=== PATIENT | male | born 1955 | race Caucasian/White ===

== ENCOUNTER 2018-08-04 18:32 | Emergency (ER) | payer BC, SELFPAY ==
[2018-08-04] VITALS (7 sets, daily range): BP systolic 130–188; BP diastolic 57–79; PULSE 67–84; RESP 14–24; TEMP 36.6–36.8; O2SAT 92–98
--- NOTE | 2018-08-04 19:05 | W.ED.GENAD ---
Medical Decision Making <Chito Cooper DO - Last Filed: 08/05/18 08:37> This is a pleasant 63-year-old male who presents with left scrotal pain for the last few days, as well as dysuria and left flank pain. Exam demonstrates a notably enlarged left testicle, exquisitely tender on exam. Mild erythema and edema of the scrotum. No subcutaneous crepitus. No evidence of significant hernia that I can appreciate. I am unable to visualize the penis secondary to the generalized swelling in the area. I cannot appreciate any balanitis or severe phimosis or paraphimosis on exam clinically. I am notably concerned for the patient's left testicle, differential includes abscess versus infected hydrocele versus mass. We will get a CT scan for further evaluation. Will perform laboratory work-up to evaluate for infectious etiology. Dr. Tejeda is currently unavailable for the next 48 hours, we will contact [facility] for further urologic management. The case will be signed out to my colleague Dr. Kaur for CT results, final disposition management. The patient will be started on Zosyn and Flagyl for suspected infection. <Jeromy Kaur MD - Last Filed: 08/04/18 22:31> Patient signed out to me pending laboratory results and CT scan. Clinically he is reported to have evidence of genital cellulitis with large, firm, tender left hemiscrotum. He is hemodynamically stable. He has Zosyn and Flagyl running. Laboratory studies of significance is a white count of 13.6, sed rate of 99, C-reactive protein of 16.5. BUN and a creatinine a little elevated at 25 and 1.44 respectively. No baseline in our system. Glucose high at 290. Urine positive for blood and nitrites. Micro positive for white cells, red cells, bacteria. CT scan per radiology show evidence of scrotal and penile cellulitis with evidence of left sided epididymitis and epididymal abscess. Also of note are 2 large sclerotic lesions one involving the left femoral neck and one involving the left hemipelvis which should be worked up in the future to rule out malignancy. Case discussed with [facility] urology. Unfortunately there are no beds for them to accept patients to. She did recommend transfer to tertiary care center where there is urology available to evaluate. Agreed with antibiotic choice of Zosyn and Flagyl. Case discussed with [facility] urology, Dr. Newton. He agrees with patient being transferred to the ED at [facility] for evaluation there regarding hospitalist admission versus urology admission. He also agreed with Zosyn and Flagyl as antibiotic choice. Patient remains hemodynamically stable. Patient discussed with ED physician, Dr. Meraz. Patient to be transferred by ambulance to [facility] emergency department for further evaluation of scrotal cellulitis and possible epididymal abscess. Patient and aware of need for transfer and are agreeable with transfer to [facility]. Lab Data Lab results reviewed: Yes I reviewed the patient's lab results. HPI <Chito Cooper DO - Last Filed: 08/05/18 08:37> General Date/Time Provider Initiated Documentation: 08/04/18 18:37. HPI Narrative: This is a 63-year-old male with a past medical history of diabetes hypertension high cholesterol on Plavix for cardiac stents, who presents today for evaluation of left scrotal pain and swelling in addition to some mild flank pain generalized abdominal uneasiness. He did have some diarrhea and vomiting 3 to 4 days ago, this is resolved, however pain in his left lower scrotum, and swelling in his scrotum around the left testicle has notably increased. Also of note roughly 2 to 3 weeks ago the patient states that he had swelling of his foreskin, he was given a steroid pill and cream and this improved those symptoms. In addition to the symptoms the patient also complains of dysuria for the last few days, and left-sided flank and abdominal pain. He denies any history of other scrotal issues. He has no other complaints at this time. Related Data Home Medications Medication Instructions Recorded Confirmed allopurinol 200 mg PO DAILY 08/04/18 08/04/18 amlodipine 10 mg PO DAILY 08/04/18 08/04/18 aspirin 325 mg PO DAILY 08/04/18 08/04/18 clopidogrel 75 mg PO DAILY 08/04/18 08/04/18 coenzyme Q10 [CoQ-10] 100 mg PO DAILY 08/04/18 08/04/18 cyanocobalamin (vitamin B-12) 1,000 mcg PO DAILY 08/04/18 08/04/18 [Vitamin B-12] finasteride 5 mg PO DAILY 08/04/18 08/04/18 folic acid 1 mg PO DAILY 08/04/18 08/04/18 glipizide 2.5 mg PO BID 08/04/18 08/04/18 glucosamine sulfate 2KCl 2 mg PO DAILY 08/04/18 08/04/18 [Glucosamine Relief] insulin aspart U-100 [Novolog 15 unit SUBCUT DAILY 08/04/18 08/04/18 U-100 Insulin aspart] insulin glargine [Lantus Solostar 60 unit SUBCUT DAILY 08/04/18 08/04/18 U-100 Insulin] losartan-hydrochlorothiazide 1 tab PO DAILY 08/04/18 08/04/18 metformin 1,000 mg PO BID 08/04/18 08/04/18 metoprolol succinate 100 mg PO BID 08/04/18 08/04/18 omega-3 fatty acids [Fish Oil 1,000 mg PO DAILY 08/04/18 08/04/18 Concentrate] rosuvastatin [Crestor] 40 mg PO DAILY 08/04/18 08/04/18 sertraline 100 mg PO DAILY 08/04/18 08/04/18 tamsulosin 0.4 mg PO DAILY 08/04/18 08/04/18 trazodone 50 mg PO QHS PRN 08/04/18 08/04/18 Allergies Allergy/AdvReac Type Severity Reaction Status Date / Time No Known Allergies Allergy Unverified 08/04/18 18:55 General Stated Complaint: FlankPain AGUSTIN: 3 Review of Systems <Chito Cooper DO - Last Filed: 08/05/18 08:37> Review of Systems All systems reviewed & are unremarkable except as noted in HPI and below PFSH <Chito Cooper DO - Last Filed: 08/05/18 08:37> Social History Smoking/Tobacco Use Status: Never Alcohol Intake: current Alcohol Intake frequency: a few times a month Alcohol type: beer Drug use: Never Substance use type: does not use Do you feel safe at home: Yes Do you feel safe in your relationship?: Yes Exam <Chito Cooper DO - Last Filed: 08/05/18 08:37> Narrative Exam Narrative: 1.Const: Well-nourished, Well-developed, appearing stated age 2.Eyes: PERRL, no conjunctival injection, and symmetrical lids. 3.ENT: Atraumatic external nose and ears. Moist MM. Neck: Symmetric, trachea midline, No thyromegaly. 4.CVS: +S1/S2, No murmurs or gallops. Peripheral pulses 2+ and equal in all extremities. Brisk capillary refill in all extremities. 5.RESP: Unlabored respiratory effort. Clear to auscultation bilaterally. No wheezes rales or rhonchi 6.GI: Soft, Nondistended, No hepatosplenomegaly. No guarding or rebound. Mild left CVA tenderness. Genital exam demonstrates notably enlarged firm left testicle, appears to be greater than 5 or 6 cm. Exquisitely tender. Mild erythema. Right testicle is normal in palpation in appearance. No significant tenderness. Unable to evaluate penis secondary to swelling edema and retraction of the penis behind the scrotal and regular penile tissue. However the pathway for penis extraction shows no evidence of significant firm erythematous or edematous tissue. No pain or tenderness on actual palpation of the penis itself. 7.MSK: Normocephalic/Atraumatic, Extremities w/o deformity or ttp No cyanosis or clubbing, Normal movement of all extremities 8.Skin: Warm, Dry. No rashes or lesions. 9.Neuro: lube attendant II-XII grossly intact. Sensation grossly intact, no focal neurologic deficits. 10.Psych: (AAO) x3. Appropriate mood and affect Course <Chito Cooper, - Last Filed: 08/05/18 08:37> Vital Signs Temperature 36.8 C 08/04/18 18:40 Pulse 76 08/04/18 18:40 Respiratory Rate 14 08/04/18 18:40 Blood Pressure 188/75 H 08/04/18 18:40 Pulse Oximetry 95 08/04/18 18:40 Temperature 36.8 C 08/04/18 18:40 Temperature Source Temporal Artery Scan 08/04/18 18:40 Pulse 76 08/04/18 18:40 Respiratory Rate 14 08/04/18 18:40 Respiratory Effort 08/04/18 18:56 Blood Pressure 188/75 H 08/04/18 18:40 Blood Pressure Position Sitting 08/04/18 18:40 Pulse Oximetry 95 08/04/18 18:40 Oxygen Delivery Method Room Air 08/04/18 18:40 Oxygen Flow Rate 0 08/04/18 18:40 Pain Level 3 08/04/18 18:40 Lab/Test Results Lab/Test Results: 08/04/18 18:52 Blood Blood Culture - Pending 08/04/18 18:52 Blood Blood Culture - Pending Sign Out <Chito Cooper DO - Last Filed: 08/05/18 08:37> Sign Out Data: Sign Out Comment: Pending CT results, labs and disposition Last updated by Chito Cooper DO at 08/04/18 20:21
[2018-08-04 19:12] LABS: Abs Immature Grans 0.11 k/cumm (0.0-0.09); Absolute Basophil Count 0.04 k/cumm (0.0-0.2); Absolute Eosinophil Count 0.16 k/cumm (0.0-0.7); Absolute Monocyte Count 0.97 k/cumm (0.11-0.7); Absolute Neutrophil Count 10.94 k/cumm (1.2-6.7); Basophils % 0.3; Eosinophils % 1.2; HCT 42.3 % (40.0-50.0); HGB 14.3 g/dL (13.5-17.5); Immature Grans % 0.8; Lactate-non-spesis 1.1 mmol/l (0.6-1.4); Lymphocytes % 10.3; Mean Corp. HGB Concentration 33.8 g/dL (32.0-36.0); Mean Corpuscular Hemoglobin 28.2 pg (27.0-33.0); Mean Corpuscular Volume 83.4 fL (80-95); Mean Platelet Volume 9.9 fL (8.0-11.0); Monocytes % 7.1; Neutrophils % 80.3; Platelet Count 208 x1000/uL (130-400); RBC 5.07 m/cumm (4.50-6.00); RBC Distribution Width 13.7 % (11.8-14.1); White Blood Cell Count 13.62 k/cumm (4.4-10.8)
[2018-08-04 19:29] LABS: Prothrombin Time 9.9 sec (9.3-11.0)
[2018-08-04 19:47] LABS: ALT 37 U/L (12-78); AST 20 U/L (15-37); Albumin 3.2 g/dL (3.4-5.0); Alkaline Phosphatase 147 U/L (46-116); Anion Gap 8.6 mmol/L (3-11); BUN 25 mg/dL (7-18); Bilirubin, Total 0.3 mg/dL (0.2-1.0); C-Reactive Protein 16.51 mg/dL (0.0-0.3); CO2 28.4 mmol/L (21.0-32.0); CREATININE 1.44 mg/dL (0.70-1.30); Calcium 9.7 mg/dL (8.5-10.1); Chloride 95 mmol/L (98-107); Estimated GFR 49.39 (mL/min/1.73m2); Glucose 290 mg/dL (70-100); Potassium 3.7 mmol/L (3.5-5.1); Sodium 132 mmol/L (136-145); Total Protein 8.3 g/dL (6.4-8.2)
[2018-08-04 19:57] LABS: ESR 99 MM/HR (1-20)
[2018-08-04] MEDS: Omnipaque 350 MG/ML 100 ML BTL IV (20:02)
--- NOTE | 2018-08-04 20:25 | DI.CT_ITS ---
SYMPTOM/DIAGNOSIS: SCROTAL MASS, ERYTHEMA, ? ABSCESS ABDOMEN AND PELVIC CT: CT scan of the abdomen and pelvis was performed following the uneventful administration of intravenous contrast material. There are no priors for comparison. No acute findings are seen in the lung bases. There is diffuse decreased attenuation of the liver suggesting fatty infiltration. No discrete hepatic mass is seen. The portal, superior mesenteric and splenic veins are patent. The gallbladder is negative. There is no biliary ductal dilatation. The pancreas, spleen and adrenal glands are unremarkable. The kidneys show normal and symmetric enhancement. There is a cyst in the mid pole of the right kidney. No hydronephrosis is seen. The urinary bladder is intact. The prostate gland is grossly unremarkable. There is atherosclerosis of the abdominal aorta but no aneurysmal dilatation. No significant abdominal or pelvic adenopathy, ascites or pneumoperitoneum is present. The bowel shows no evidence of obstruction or inflammation. There is normal retrocecal appendix present. There does appear to be thickening of the scrotal sac and a hydrocele is seen on the right. There is a question of mild thickening of the soft tissues of the penis. Testicular ultrasound should be considered for further evaluation. There is spondylolysis of L 5 and grade 1 spondylolisthesis of L 5 on S 1. Moderately severe degenerative changes are present in the lumbar spine. There are two sclerotic foci seen within the left femoral neck. These may represent bone islands. Correlation with the patient's past history for malignancy should be considered to exclude metastatic disease. IMPRESSION: 1. Soft tissue thickening seen in the scrotum and along the penis suggesting inflammation/cellulitis. Probable right hydrocele. Scrotal ultrasound should be considered for further evaluation. 2. Two sclerotic foci seen within the left femoral neck. These may represent benign lesions such as bone islands, enostoses. Metastatic disease cannot be entirely excluded. Please correlate with the patient's past medical history to see if there is a history of malignancy. Depending on the results, a follow up bone scan may be considered for further evaluation.
[2018-08-04] MEDS: PIPERACILLIN/TAZO 4.5 GM in Normal Saline 100 ML IVPB (20:44)
[2018-08-04] MEDS: metroNIDAZOLE 500 MG/100 ML BAG 100 MG IVPB (20:44)
--- NOTE | 2018-08-04 20:52 | DI.VRAD_ITS ---
EXAM: CT Abdomen and Pelvis With Contrast EXAM DATE/TIME: 08/04/2018 6:53 PM CLINICAL HISTORY: 63 years old, male; Abdominal pain and other: Scrotal; Generalized; Prior surgery; Surgery date: 6+ months; Surgery type: Stents; Patient HX: Scrotal mass and erythema, eval for abcess. Pain in scrotum beginning on Friday. Trouble with foreskin for a while also TECHNIQUE: Imaging protocol: Axial computed tomography images of the abdomen and pelvis with intravenous contrast. Coronal and sagittal reformatted images were created and reviewed. Contrast material: OMNIPAQUE 350; Contrast volume: 85 ml; Contrast route: IV; COMPARISON: No relevant prior studies available. FINDINGS: Lungs: Visualized lung bases are clear. Heart: Heart size normal. ABDOMEN: Liver: Mild fatty infiltration of the liver with mild sparing around the gallbladder fossa. No focal hepatic lesions or intrahepatic biliary dilatation. Gallbladder and bile ducts: Normal. No calcified stones. No ductal dilation. Pancreas: Mild pancreatic atrophy without acute abnormality. Spleen: Normal. No splenomegaly. Adrenals: Normal. No adrenal mass. Kidneys and ureters: 2 mm probable cyst in the anterior midpole of the right kidney. Left renal cortical irregular thinning suggesting chronic renal scarring. No hydronephrosis or urolithiasis. Stomach and bowel: The visualized distal esophagus and stomach are normal. The small bowel is normal with no evidence of obstruction. The colon is normal. Appendix: The appendix is normal in caliber and demonstrates no evidence of appendicitis. PELVIS: Bladder: Unremarkable as visualized. Reproductive: There is scrotal edema consistent with the patient's clinical history, which appears to extend into the rightward penile distribution. This is suggestive of cellulitis. There is a small right hydrocele present. The left testis appears mildly irregular with some mildly excessive peripheral enhancement which may represent thickening and hyperemia in the epididymis. On series 8 image 43 in the region of the epididymal head or anterior scrotum there is a 2 cm rounded focus of relatively low density with peripheral enhancement raising suspicion for possible small scrotal abscess. Focused ultrasound assessment of this region may be helpful for confirmation. ABDOMEN and PELVIS: Intraperitoneal space: No free fluid or air. Bones/joints: 18 mm rounded sclerotic lesion in the left femoral neck this is nonspecific in nature. A similar 12 mm sclerotic focus is seen in the supra-acetabular left hemipelvis on series 4 image 81. These may represent large bone islands, however consider bone scan assessment to rule out a metastatic pattern of disease, particularly if the patient has history of prior malignancy. Chronic appearing bilateral L5 spondylolysis with grade 2 spondylolisthesis at L5-S1. Soft tissues: Unremarkable. Vasculature: Mild atherosclerotic aortoiliac calcification without aneurysm. Lymph nodes: No adenopathy. IMPRESSION: 1. Scrotal soft tissue edema and enhancement concerning for cellulitis, with extension to involve the penis as well, predominantly right-sided. 2. Thickening and enhancement in the left epididymal distribution suspicious for possible epididymitis, with a 2 cm rounded nonenhancing focus in the region of the epididymal head or anterior scrotum which is suspicious for a small abscess. Ultrasound assessment may be helpful for confirmation. 3. Small right hydrocele. 4. Fatty liver. 5. There are 2 sclerotic lesions located in the left femoral neck and in the left hemipelvis which are nonspecific. They might represent large bone islands. Consider bone scan to exclude osteoblastic metastasis, particularly if there is history of malignancy. Dictated and Authenticated by: Isai Cornejo MD. Ordering:CALI Dale MD
[2018-08-04 20:55] LABS: Bilirubin Negative (Negative); Blood Large (Negative); Clarity Clear; Glucose >=1000 mg/dL (Negative); Ketones Negative (Negative); Leukocyte Esterase Small (Negative); Nitrite Positive (Negative); Specific Gravity <= 1.005 (1.005-1.025); Urobilinogen 0.2 EU/dL (Up TO 0.2)
[2018-08-04 21:07] LABS: Bacteria Many HPF (Negative); C & S Indicated? Yes; Casts Negative LPF (Negative); Crystals Negative HPF (Negative); Epithelial Cells Few HPF (Negative); Mucus Negative (Negative); RBC >50 (0-2); WBC >50 HPF (0-5)
[2018-08-04] MEDS: Lactated Ringers 1,000 ML 200 ML IV (22:24)
== END 2018-08-04 23:39 | disposition short-term general hospital (02) ==
PROVIDERS: Student in an Organized Health Care Education/Training Program; Emergency Provider Emergency Medicine; PCP Neuromusculoskeletal Medicine & OMM
DX: L03.314 Cellulitis of groin (principal); N45.4 Abscess of epididymis or testis; N45.1 Epididymitis
CPT/HCPCS: 36415; 80053; 85652; 87040; 87077; 96361; 96365; 99285; 74177; 81003; 81015; 83605; 85025; 85610; 85730; 86140; 87086; 87186; 99284; J2543; J3490